=== PATIENT | male | born 1945 | race Caucasian/White ===

== ENCOUNTER 2017-09-09 12:04 | Day surgery (SDC) | payer OTHER ==
[~2017-09-09] VITALS: Ht 172.7 cm; Wt 68.4 kg
[~2017-09-09 12:04] MED LIST: ACYC200 PO; ACYC400 PO; ALBU90I; ALBU90OI INH; ALBU90OI6 INH; ALLERCLEAR10 MG PO; AMOX875; Albuterol2.5 MG/0.5 INH; BENZ100A PO; BUDE6HFA INH; CYCL10 PO; DELTASONE20 MG PO; DOXY100 PO; ERGO400 PO; FORM12IH; G-FENESIN400 MG; GUAI600T33 PO; METPRE4DP; OMEG1CAP30 PO; PRED1 PO; PSEU120ER PO; Pseudoephedrine30 MG PO; ROPI.25 PO; ROPI1 PO; ROPI5 PO; TAMS.4ER PO; TIOT18 IH; TIOT18 INH; UBID10 PO; UBID100 PO; VARE1 PO; [UNRECOGNIZED DRUG - OTHER] PO
== END 2017-09-09 14:35 | disposition home or self-care (01) ==
LOC: ORSCSDS 12:04
PROVIDERS: Anesthesiology
PROC: 3E0R33Z Introduction of Anti-inflammatory into Spinal Canal, Percutaneous Approach (ICD-10-PCS; principal; 2017-09-09 13:15)
DX: M50.322 Other cervical disc degeneration at C5-C6 level (principal); M48.02 Spinal stenosis, cervical region; J44.9 Chronic obstructive pulmonary disease, unspecified; Z87.891 Personal history of nicotine dependence; Z79.899 Other long term (current) drug therapy
CPT/HCPCS: J1040; J2250; J3010; J7040; J7120

== ENCOUNTER 2017-12-23 08:32 | Day surgery (SDC) | payer OTHER ==
[~2017-12-23] VITALS: Ht 175.3 cm; Wt 68.7 kg
[2017-12-23] MEDS ORDERED: ALBU90OI61 (09:00)
== END 2017-12-23 09:43 | disposition home or self-care (01) ==
LOC: ORSCSDS 08:32
PROVIDERS: Anesthesiology
PROC: 3E0R33Z Introduction of Anti-inflammatory into Spinal Canal, Percutaneous Approach (ICD-10-PCS; principal; 2017-12-23 09:30)
DX: M50.122 Cervical disc disorder at C5-C6 level with radiculopathy (principal); J44.9 Chronic obstructive pulmonary disease, unspecified; Z87.891 Personal history of nicotine dependence; Z79.899 Other long term (current) drug therapy
CPT/HCPCS: J1040; J2250; J3010; J7040

== ENCOUNTER 2018-05-25 06:45 | Day surgery (SDC) | payer OTHER ==
[~2018-05-25] VITALS: Ht 175.3 cm; Wt 65.4 kg
[~2018-05-25 06:45] MED LIST changes: +ALBU90OI61; +COMBIVENT RESPIM4 GM INH
--- NOTE | 2018-05-25 07:33 | NUR ---
05/25/18 0733 Milly Goss PREOP TEACHING COMPLETED AT THIS TIME. AT CHAIRSIDE. CALL LIGHT WITHIN REACH
--- NOTE | 2018-05-25 08:08 | NUR ---
05/25/18 0808 Ava Croew [id number], 94%, 124/61 [id number], 93%, 104/63 PATIENT APPEARED TO TOLERATE PROCEDURE WELL. PATIENT TAKEN TO SDU WITHOUT S/S DISTRESS OR COMPLAINTS. PT ALERT AND APPROPRITATE. CARE TRANSFERED.
--- NOTE | 2018-05-25 08:11 | NUR ---
05/25/18 0811 Valerie Palomares PT TOLERATING PO NOURISHMENT, AND DENIES PAIN/NAUSEA AT THIS TIME. VSS. AT CHAIRSIDE. READY FOR DC HOME
== END 2018-05-25 08:18 | disposition home or self-care (01) ==
LOC: ORSCSDS 06:45
PROVIDERS: Anesthesiology
PROC: 3E0R33Z Introduction of Anti-inflammatory into Spinal Canal, Percutaneous Approach (ICD-10-PCS; principal; 2018-05-25 07:45)
DX: M50.122 Cervical disc disorder at C5-C6 level with radiculopathy (principal); J44.9 Chronic obstructive pulmonary disease, unspecified; Z87.891 Personal history of nicotine dependence; Z79.899 Other long term (current) drug therapy
CPT/HCPCS: J1040; J2250; J3010; J7120

== ENCOUNTER 2018-09-27 11:02 | Day surgery (SDC) | payer OTHER ==
[~2018-09-27] VITALS: Ht 175.3 cm; Wt 65.7 kg
[~2018-09-27 11:02] MED LIST changes: +ALBU3IS INH
--- NOTE | 2018-09-27 12:07 | NUR ---
09/27/18 1207 Micah Salinas 3ML ISOVUE 200M INJ INTO OPSITE BY JOSE AT 1205.
== END 2018-09-27 12:34 | disposition home or self-care (01) ==
LOC: ORSCSDS 11:02
PROVIDERS: Anesthesiology
PROC: B01B1ZZ Fluoroscopy of Spinal Cord using Low Osmolar Contrast (ICD-10-PCS; principal; 2018-09-27 12:00)
PROC: 3E0R33Z Introduction of Anti-inflammatory into Spinal Canal, Percutaneous Approach (ICD-10-PCS; principal; 2018-09-27 12:00)
DX: M50.122 Cervical disc disorder at C5-C6 level with radiculopathy (principal); J44.9 Chronic obstructive pulmonary disease, unspecified; Z79.899 Other long term (current) drug therapy; F17.210 Nicotine dependence, cigarettes, uncomplicated
CPT/HCPCS: J1040; J2250; J3010; J7120

== ENCOUNTER 2021-10-25 15:01 | Emergency (ER) | payer OTHER ==
[~2021-10-25] VITALS: Ht 172.7 cm; Wt 70.3 kg
[2021-10-25 15:44] LABS: BASOPHILS ABSOLUTE AUTO 0.08 K/mm3 (0.00-0.23); BASOPHILS PERCENT AUTO 1 % (0-2); EOSINOPHILS ABSOLUTE AUTO 0.13 K/mm3 (0.00-0.68); EOSINOPHILS PERCENT AUTO 1 % (0-6); Hematocrit 44.1 % (37.0-53.0); Hemoglobin 14.5 g/dL (13.5-17.5); IMMATURE GRAN ABSOLUTE AUTO 0.03 K/mm3 (0.00-0.10); IMMATURE GRAN PERCENT AUTO 0 % (0-1); LYMPHOCYTES ABSOLUTE AUTO 2.36 K/mm3 (0.84-5.20); LYMPHOCYTES PERCENT AUTO 24 % (21-46); MONOCYTES ABSOLUTE AUTO 1.36 K/mm3 (0.16-1.47); MONOCYTES PERCENT AUTO 14 % (4-13); Mean Corpuscular HGB 29.5 pg (26.0-34.0); Mean Corpuscular HGB Conc 32.9 g/dL (31.5-36.5); Mean Corpuscular Volume 90 fL (80-100); Mean Platelet Volume 9.9 fL (9.1-12.4); NEUTROPHILS ABSOLUTE AUTO 5.71 K/mm3 (1.96-9.15); NEUTROPHILS PERCENT AUTO 59 % (41-73); Platelet Count 271 K/mm3 (150-400); RDW Coefficient Variation 14.2 % (11.7-14.2); Red Blood Cell Count 4.91 M/mm3 (4.30-5.90); White Blood Cell Count 9.67 K/mm3 (4.00-11.30)
[2021-10-25 16:01] LABS: Albumin, Blood 3.6 g/dL (3.4-5.0); Albumin/Globulin Ratio 0.9 (0.8-1.8); Bilirubin, Total 0.7 mg/dL (0.1-1.0); Bun/Creatinine Ratio 16.2 (12.0-20.0); Calcium, Blood 9.3 mg/dL (8.5-10.1); Creatinine, Blood 0.87 mg/dL (0.60-1.20); Globulin, Blood 3.9 g/dL (2.2-4.0); Total Protein, Blood 7.5 g/dL (6.4-8.2)
[2021-10-25] MEDS ORDERED: Prednisone50 MG PO (18:52)
== END 2021-10-25 18:58 | disposition home or self-care (01) ==
LOC: ER 15:01
PROVIDERS: Physician Assistant
DX: J20.9 Acute bronchitis, unspecified (principal); J44.0 Chronic obstructive pulmonary disease with (acute) lower respiratory infection; F43.10 Post-traumatic stress disorder, unspecified; F03.90 Unspecified dementia, unspecified severity, without behavioral disturbance, psychotic disturbance, mood disturbance, and anxiety; Z79.899 Other long term (current) drug therapy; Z88.6 Allergy status to analgesic agent; Z88.8 Allergy status to other drugs, medicaments and biological substances
CPT/HCPCS: 71045; 71260; 80053; 83880; 84484; 85025; 94640; 94664; J2930; Q9967

== ENCOUNTER 2023-05-08 04:10 | Inpatient (IN) | payer OTHER ==
[~2023-05-08] VITALS: Ht 180.3 cm; Wt 90.7 kg
[~2023-05-08 04:10] MED LIST changes: +Prednisone50 MG PO
[2023-05-08 04:36] LABS: BASOPHILS ABSOLUTE AUTO 0.04 K/mm3 (0.00-0.23); BASOPHILS PERCENT AUTO 0 % (0-2); EOSINOPHILS ABSOLUTE AUTO 0.12 K/mm3 (0.00-0.68); EOSINOPHILS PERCENT AUTO 1 % (0-6); Hematocrit 38.1 % (37.0-53.0); Hemoglobin 12.6 g/dL (13.5-17.5); IMMATURE GRAN ABSOLUTE AUTO 0.23 K/mm3 (0.00-0.10); IMMATURE GRAN PERCENT AUTO 1 % (0-1); LYMPHOCYTES ABSOLUTE AUTO 1.19 K/mm3 (0.84-5.20); LYMPHOCYTES PERCENT AUTO 7 % (21-46); MONOCYTES ABSOLUTE AUTO 1.59 K/mm3 (0.16-1.47); MONOCYTES PERCENT AUTO 10 % (4-13); Mean Corpuscular HGB 29.6 pg (26.0-34.0); Mean Corpuscular HGB Conc 33.1 g/dL (31.5-36.5); Mean Corpuscular Volume 90 fL (80-100); Mean Platelet Volume 9.6 fL (9.1-12.4); NEUTROPHILS ABSOLUTE AUTO 12.89 K/mm3 (1.96-9.15); NEUTROPHILS PERCENT AUTO 80 % (41-73); Platelet Count 270 K/mm3 (150-400); RDW Coefficient Variation 14.6 % (11.7-14.2); RDW Standard Deviation 47.8 fL (35.1-46.3); Red Blood Cell Count 4.25 M/mm3 (4.30-5.90); White Blood Cell Count 16.06 K/mm3 (4.00-11.30)
[2023-05-08 04:54] LABS: Albumin/Globulin Ratio 0.4 (0.8-1.8); Bilirubin, Total 0.4 mg/dL (0.1-1.0); Bun/Creatinine Ratio 19.6 (12.0-20.0); Calcium, Blood 8.5 mg/dL (8.5-10.1); Creatinine, Blood 0.82 mg/dL (0.60-1.20); Globulin, Blood 4.9 g/dL (2.2-4.0); Potassium, Blood 4.3 mmol/L (3.5-5.5); Total Protein, Blood 6.9 g/dL (6.4-8.2)
[2023-05-08] MEDS ORDERED: FINA5 PO (07:36)
[2023-05-08] MEDS ORDERED: ASMANEX INH (07:38)
[2023-05-08] MEDS ORDERED: Stiolto Respimat Inh INH (07:39)
[2023-05-08 10:22] VITALS: BP 118/59
[2023-05-08] MEDS ORDERED: TRAM50 PO (11:03)
--- NOTE | 2023-05-08 17:59 | NUR ---
SHIFT SUMMARY: PT ORIENTED TO SELF. ADMITTED FOR SEPSIS PNEUMONIA AND HYPOXEMIC RESP FAILURE. VERY LITTLE VERBAL COMMUNICATION. PT ABLE TO STATE "YES." AND CURSE WORDS WHEN UNHAPPY. PT INCONTINENT. BED AND BRIEF CHANGE PROVIDED. PT KICKS OFF BRIEF WHEN ANXIOUS/AGITATED AND SOAKS BED. CAMERA IN PLACE. PT RIPPED OFF TELE WIRES SEVERAL TIMES THIS SHIFT. NO ATTEMPTS TO PULL IV'S. PT BECAME COMBATIVE WHEN ATTEMPTING SKIN CHECK. NO WOUNDS NOTED WHEN CHANGING PT. PT DESAT TO 88% THIS AFTERNOON. 2L NC PLACED BY RT BUT PT REFUSES TO KEEP NC ON. ASP PRECAUTION. CHANGED TO [facility] SOFT DIET. TRAMADOL ADDED TO EMAR PER DR. JAFFE. ONE DOSE GIVEN THIS SHIFT. CODE STATUS CHANGED FROM FULL TO DNR. PER PT HAS POLST AT HOME AND STATES DNR. TELE IN PLACE RUNNING NSR. SPEECH THERAPY EVAL IN PLACE. SB ASSIST c TRANSFERS. CALL LIGHT IN REACH. BED IN LOWEST POSITION. AT BEDSIDE. CAMERA IN PLACE. BED ALARM ON. PT CURRENTLY EATING DINNER W/O COMPLAINTS.
[2023-05-08 19:55] VITALS: BP 118/69
--- NOTE | 2023-05-09 04:14 | NUR ---
SHIFT SUMMARY PT ALERT UNABLE TO TELL ME HIS NAME OR . RECOGNIZES WHO WAS AT BEDSIDE AT THE START OF SHIFT. PT CURRENTLY ON TELEMETRY RUNNING SR @ 93. PT IS INCONTINENT OF URINE, ATTENDS CHANGED PRN. 2L O2 VIA NC WHICH PT TAKES OFF NUMEROUS TIMES. PT PULLED OUT RIGHT ARM IV. STILL HAS AN IV IN THE LEFT ARM. COVERED WITH COBAND. PT HARD TO REDIRECT WHEN ATTEMPTING TO PULL AT LINES OR GET OOB. GAVE PT SENSORY/FIGIT TO KEEP FINGERS OCCUPIED. CAMERA IN PLACE. BED ALARM SET AND BED IN LOWEST POSITION. WILL CONTINUE TO MONITOR.
[2023-05-09 05:04] VITALS: BP 126/67
[2023-05-09 07:42] VITALS: BP 117/66
--- NOTE | 2023-05-09 12:24 | NUR ---
PLAN IS TO TRANSITION TO COMFORT CARE. IV REMOVED AND TELE DISCONTINUED PER DR. DUNCAN. IV MEDICATIONS DISCONTINUED. AT BEDSIDE.
--- NOTE | 2023-05-09 14:27 | NUR ---
Dr. Banks met with pt's this morning at the bedside after examining the patient. The patient was recently diagnosed with pneumonia, sepsis, and acute respiratory failure, along with Covid 19. He is non-verbal, only able to say yes or "oh fuck" according to most recent history and physical. He has been experiencing both physical and mental decline that exacerbated with Covid. Due to his advanced dementia, the patient's overall prognosis is poor. After a discussion with Dr. Banks, pt's Mireya has made the decision to place the patient on comfort care. The current plan is to return to the [place] facility with hospice.
--- NOTE | 2023-05-09 16:40 | NUR ---
SHIFT SUMMARY PT HAS TRANSITIONED TO COMFORT CARE TODAY, HE IS CONFUSED AND IMPULSIVE, DIFFICULT TO REDIRECT AT TIMES TO GET BACK INTO CHAIR. VERY STEADY ON HIS FEET WHEN AMBULATING. CAMERA IN ROOM. BED ALARM OR CHAIR ALARM ON AT ALL TIMES. INC OF BLADDER CHANGED NEEDED. PT IN CHAIR AT THIS TIME.
[2023-05-09 20:08] VITALS: BP 137/66
--- NOTE | 2023-05-10 05:59 | NUR ---
Shift Summary Pt AOx1, on comfort care. At the start of shift pt was frequently up and walking around, difficult to redirect back to bed. I gave him PRN Ativan 2mg around 0000, pt was able to rest comfortably t/o the rest of the night. Attends changed as needed. Pt is steady on his feet when up.
[2023-05-10 09:04] VITALS: BP 129/80
--- NOTE | 2023-05-10 15:55 | NUR ---
LATE ENTRY-DISCHARGE PT DISCHARGED TO FACILITY. AT BEDSIDE. PACKET HANDED OFF TO TRANSPORTER. REPORT GIVEN TO NASEEM AT [place]. TREATED WITH ANTIANXIETY MEDICATION PRIOR TO TRANSPORT. ALERT AND NOT ORIENTED. R/A-2L NC PT REMOVES OFTEN.
== END 2023-05-10 14:39 | disposition hospice, home (50) | DRG 871 ==
LOC: ER 04:10 → MEDS 07:13 → ENPENDDIS 05-10 10:47 → MEDS 05-10 14:39
PROVIDERS: Emergency Medicine; ADMIT Internal Medicine
DX: A41.9 Sepsis, unspecified organism (principal); J18.9 Pneumonia, unspecified organism; J96.21 Acute and chronic respiratory failure with hypoxia; J44.0 Chronic obstructive pulmonary disease with (acute) lower respiratory infection; F02.C4 Dementia in other diseases classified elsewhere, severe, with anxiety; Z51.5 Encounter for palliative care; Z66 Do not resuscitate; R65.20 Severe sepsis without septic shock; G31.09 Other frontotemporal neurocognitive disorder; G47.30 Sleep apnea, unspecified; N40.0 Benign prostatic hyperplasia without lower urinary tract symptoms; R73.9 Hyperglycemia, unspecified; F51.04 Psychophysiologic insomnia; M13.80 Other specified arthritis, unspecified site; Z86.16 Personal history of COVID-19; Z99.81 Dependence on supplemental oxygen; Z88.6 Allergy status to analgesic agent; Z88.8 Allergy status to other drugs, medicaments and biological substances; Z79.51 Long term (current) use of inhaled steroids; Z79.52 Long term (current) use of systemic steroids; Z87.820 Personal history of traumatic brain injury; Z96.641 Presence of right artificial hip joint; Z87.891 Personal history of nicotine dependence
CPT/HCPCS: 36415; 71045; 80053; 83605; 83880; 84145; 84484; 85025; 92610; 93005; 93010; 94640; 94664; 94760; 96365; 96367; 99285-25; A9270; J0456; J0696; J1650; J2543; J7030; J7050